=== PATIENT | female | born 1955 | race Caucasian/White ===

== ENCOUNTER 2016-12-02 21:57 | Emergency (ER) | payer BC ==
[2016-12-02 22:28] VITALS: BP 137/91
[2016-12-02 23:20] LABS: CHLORIDE,CL 97 mmol/L (101-111); SODIUM,NA 135 mmol/L (135-145)
--- NOTE | 2016-12-03 00:01 | EDM.PDOC ---
{null, ED HPI GENERAL MEDICAL PROBLEM - General Chief Complaint: Cardiovascular Problem Stated Complaint: HEART IRREGULAR, [id number] Time Seen by Provider: 12/02/16 23:57 Source of Information: Reports: Patient History Limitations: Reports: No Limitations - History of Present Illness INITIAL COMMENTS - FREE TEXT/NARRATIVE: onset [employer] feeling like heart is beating irreg, but now gone. got worried since there is Fh/o. denies CP/SOB. - Related Data Allergies Allergy/AdvReac Type Severity Reaction Status Date / Time kiwi Allergy Burning Verified 12/02/16 22:36 Home Meds: Home Meds Potassium Chloride 20 meq PO DAILY 12/02/16 [History] Triamterene/Hydrochlorothiazid [Triamterene-HCTZ 37.5-25 MG] 2 each PO DAILY [History] atorvaSTATin Calcium [Atorvastatin Calcium] 1 tab PO DAILY 12/02/16 [History] Past Medical History Cardiovascular History: Reports: High Cholesterol - Past Surgical History GI Surgical History: Reports: Cholecystectomy Social & Family History - Tobacco Use Smoking Status *Q: Never Smoker Second Hand Smoke Exposure: No - Recreational Drug Use Recreational Drug Use: No ED ROS GENERAL - Review of Systems Review Of Systems: ROS reveals no pertinent complaints other than HPI. ED EXAM, GENERAL - Physical Exam Exam: See Below Exam Limited By: No Limitations General Appearance: Alert, WD/WN, No Apparent Distress, Anxious Ears: Hearing Grossly Normal Throat/Mouth: Normal Voice, No Airway Compromise Head: Atraumatic Neck: Non-Tender, Full Range of Motion Respiratory/Chest: No Respiratory Distress Cardiovascular: Regular Rate, Rhythm GI/Abdominal: Soft, Non-Tender Neurological: Alert, Oriented, Normal Cognition, Normal Gait, No Motor/Sensory Deficits Psychiatric: Normal Affect, Normal Mood Skin Exam: Warm, Dry Lymphatic: No Adenopathy Course - Vital Signs Last Recorded V/S: Last Vital Signs Temp 36.4 C 12/02/16 22:23 Pulse 66 12/02/16 22:23 Resp 18 12/02/16 22:23 BP 137/91 H 12/02/16 22:23 Pulse Ox 99 12/02/16 22:23 - Orders/Labs/Meds Orders: Active Orders 24 hr Category Date Time Status EKG Documentation Completion [RC] STAT Care 12/02/16 22:47 Active Labs: Laboratory Tests 12/02/16 12/02/16 Range/Units 22:55 22:55 WBC 7.6 (5.0-10.0) 10^3/uL RBC 4.80 (4.2-5.4) 10^6/uL Hgb 14.8 (12.0-16.0) g/dL Hct 43.5 (37.0-47.0) % MCV 90.6 (80-100) fL MCH 30.8 (27.0-34.0) pg MCHC 34.0 (33.0-35.0) g/dL Plt Count 208 (150-450) 10^3/uL Neut % (Auto) 57.5 (42.2-75.2) % Lymph % (Auto) 29.9 (20.5-50.1) % [place] % (Auto) 9.1 H (2-8) % Eos % (Auto) 2.8 (1.0-3.0) % Baso % (Auto) 0.7 (0.0-1.0) % Sodium 135 (135-145) mmol/L Potassium 3.7 (3.6-5.0) mmol/L Chloride 97 L (101-111) mmol/L Carbon Dioxide 31.0 (21.0-31.0) mmol/L Anion Gap 10.7 BUN 22 H (7-18) mg/dL Creatinine 1.1 (0.6-1.3) mg/dL Est Cr Clr Drug Dosing 50.90 mL/min Estimated GFR (MDRD) 50 BUN/Creatinine Ratio 20.00 Glucose 101 (74-105) mg/dL Calcium 9.5 (8.4-10.2) mg/dl Total Bilirubin 0.6 (0.2-1.0) mg/dL AST 26 (10-42) IU/L ALT 26 (10-60) IU/L Alkaline Phosphatase 93 (42-121) IU/L Troponin I < 0.02 (0.00-0.02) ng/ml B-Natriuretic Peptide 19 (0-100) pg/ml Total Protein 7.1 (6.7-8.2) g/dl Albumin 3.9 (3.2-5.5) g/dl Globulin 3.2 Albumin/Globulin Ratio 1.22 - Re-Assessments/Exams Free Text/Narrative Re-Assessment/Exam: 12/02/16 23:59 results discussed with Pt who states has jonny't with GF cardio but tonight got worried. presently feels normal and heart no longer irreg' Departure - Departure Time of Disposition: 23:59 Disposition: Home, Self-Care 01 Condition: good Clinical Impression: Palpitations Instructions: Palpitations, [id number] Forms: ED Department Discharge Additional Instructions: 1) rest 2) notify family doctor tomorrow 3) recheck if there is any changes or concerns - My Orders Last 24 Hours: My Active Orders 12/02/16 22:47 EKG Documentation Completion [RC] STAT - Assessment/Plan Last 24 Hours: My Active Orders 12/02/16 22:47 EKG Documentation Completion [RC] STAT }
--- NOTE | 2016-12-04 12:37 | EKG ---
{null, 12/02/2016 - GLENNA WHALEY 12-lead EKG shows normal sinus rhythm with atrial premature complex. No significant ST elevation or ST depression noted on this 12-lead EKG. [facility] /[id number] }
== END 2016-12-03 00:10 | disposition home or self-care (01) ==
LOC: DL.ED 21:57
DX: R00.2 Palpitations (principal); E78.00 Pure hypercholesterolemia, unspecified; Z91.018 Allergy to other foods; Z79.899 Other long term (current) drug therapy; Z90.49 Acquired absence of other specified parts of digestive tract
CPT/HCPCS: 36415; 80053; 83880; 84484; 85025; 93005; 99285